=== PATIENT | female | born 1980 | race Caucasian/White ===

== ENCOUNTER 2024-01-26 11:33 | Emergency (ER) | payer BC, OTHER ==
--- OUTSIDE RECORDS SUMMARY | 2024-01-26 11:36 | XMS REPORT | Continuity of Care Document ---
Author Name Unknown Address [address] [place] [address] th[address] Address [address] [facility] 1 495 [place] [address] Care Team Providers Care Web Weaver Name Role Phone Unavailable Unavailable Unavailable Encounters Start Date/Time End Date/Time Encounter Type Admission Type Attending Clinicians Care Facility Care Department Encounter ID Source 2022-02-22 14:01:04 2022-02-22 14:01:04 Outpatient [facility] [id number] Simone Pickens
[2024-01-26] MEDS ORDERED: ACETAMINOPHEN 500 MG TAB ONE (12:05)
[2024-01-26] MEDS ORDERED: ONDANSETRON 4 MG/2 ML VIAL ONE (12:05)
[2024-01-26] MEDS ORDERED: KETOROLAC 30 MG/ML INJ ONE (12:05)
[2024-01-26] MEDS ORDERED: NA CHLORIDE 0.9% 500 ML ONE (12:05)
[2024-01-26 12:11] LABS: Absolute Basophils 0.1 K/uL (0-0.5); Absolute Lymphocytes (CBC) 1.6 K/uL (0.7-4.9); Absolute Monocytes 1.5 K/uL (0.1-1.3); Absolute Neutrophil 12.7 K/uL (1.8-8.0); Basophils % 0.8 % (0-1.3); Eosinophils % 0.2 % (0-4.4); Hematocrit 36.7 % (36.0-45.0); MCH 29.9 pg (27.0-35.0); MCHC 32.6 g/dL (32.0-36.0); MCV 91.6 fL (80-100); MPV 7.6 fL (7.6-11.3); Monocytes % 9.4 % (3.3-12.3); Neutrophils % 79.6 % (41.7-73.7); Platelets 408 thou/uL (152-406); Red Cell Distribution Width 13.8 % (12.1-15.2)
--- NOTE | 2024-01-26 13:06 | RAD REPORT ---
Procedure: Chest Single View HISTORY: Cough COMPARISON: none FINDINGS: 5.5 cm consolidation mid to lower right lung. Equivocal mild left lung opacities. No significant pleural effusion noted. The heart is normal size. IMPRESSION: Right lung consolidation likely pneumonia. This should be followed with x-ray until has cleared to ex clude a postobstructive process/underlying mass.
[2024-01-26 13:16] LABS: SARS-CoV-2 Antigen CONTROL BLUE LINE VIS/BG OK
[2024-01-26 13:17] LABS: SARS-CoV-2 Antigen Rapid Res Negative (Negative)
--- NOTE | 2024-01-26 13:28 | EDPHYS ---
Physician Documentation [facility] Name: Cheikh Bloom Age: 43 yrs Sex: Female : 1980 Arrival Date: 01/26/2024 Time: 11:33 Bed 7 Private MD: ED Physician Palomo Foss HPI: 01/25 11:59 This 43 yrs old Female presents to ER via Ambulatory with complaints of ec2 Painful Cough. 12:00 Patient arrives today for evaluation of cough and cold symptoms. Patient reports has ec2 been having a greater than 1 week of symptoms. Reports cough and congestion as well as a painful cough. Reports history of previous rib fracture and says it hurts over the same area. Denies any falls injuries or trauma. Denies any abdominal pain.. Historical: - Allergies: 11:45 No Known Allergies; db - PMHx: 11:45 None; db - PSHx: 11:45 section; db - Immunization history:: Adult Immunizations unknown. - Infectious Disease History:: Denies. - Social history:: Smoking status: Patient reports the use of cigarette tobacco products, smokes one-half pack cigarettes per day, Patient uses street drugs, marijuana. ROS: 12:00 Constitutional: as per hpi ec2 Exam: 12:00 Constitutional: GEN: NAD Head: atraumatic Eyes: EOMI Ears: External ears are ec2 normal. CV: Tachycardia LUNGS: no respiratory distress, occasional scattered wheeze noted. ABD: non-distended SKIN: no evidence of rashes MSK: no evidence of trauma Vital Signs: 11:45 BP 145 / 93; Pulse 118; Resp 18; Temp 100(O); Pulse Ox 100% on R/A; Weight 92.08 kg; db Height 5 ft. 2 in. ; 12:38 BP 125 / 90; Pulse 111; Pulse Ox 96% on R/A; MAP 101 mmHg; Pain 10/10; tm6 13:51 BP 145 / 93; Pulse 112; Resp 17; Temp 100; Pulse Ox 99% on R/A; MAP 108 mmHg; Pain 5/10;tm6 11:45 Body Mass Index 37.13 (92.08 kg, 157.48 cm) db 12:38 Pain Scale: Adult tm6 13:51 Pain Scale: Adult tm6 MDM: 11:53 Medical Screening Exam initiated ec2 12:00 Data reviewed: vital signs, nurses notes. ED course: Patient arrives today for upper ec2 respiratory symptoms. Examination remarkable for tachycardia as well as scattered wheezes noted. Will obtain lab work, chest x-ray, viral swabs.. 13:26 ED course: Patient with pneumonia noted on chest x-ray. Patient is septic with ec2 tachycardia and leukocytosis. Added on blood cultures and lactic acid and recommended admission to the hospital for continued IV antibiotics and continued fluid resuscitation. Patient declined states she did not want to be admitted to the hospital, patient is leaving AGAINST MEDICAL ADVICE and expressed understanding regarding risks and benefits of hospitalization. Will prescribe antibiotics however I strongly encouraged her to be admitted.. 12 11:54 Order name: Basic Metabolic Panel; Complete Time: 13:02 ec2 01/25 11:54 Order name: CBC with Diff; Complete Time: 13:02 ec2 01/25 11:54 Order name: Influenza Screen (a \T\ B); Complete Time: 13:19 ec2 01/25 11:54 Order name: SARS RAPID; Complete Time: 13:19 ec2 01/25 11:54 Order name: XRAY Chest (1 view); Complete Time: 13:09 ec2 01/25 11:54 Order name: IV Saline Lock; Complete Time: 12:14 ec2 01/25 11:54 Order name: Labs collected and sent; Complete Time: 12:07 ec2 01/25 11:54 Order name: O2 Per Protocol; Complete Time: 12:37 ec2 01/25 11:54 Order name: O2 Sat Monitoring; Complete Time: 12:37 ec2 Administered Medications: 12:37 Drug: Ketorolac IVP 15 mg IVP once Route: IVP; Site: right antecubital; tm6 13:50 Follow up: Response: No adverse reaction tm6 12:37 Drug: NS 0.9% IV 500 ml 500 ml IV at 1 bolus once; to be given as a bolus over 30 tm6 minutes Volume: 500 ml; Route: IV; Rate: 1 bolus; Site: right antecubital; 13:41 Follow up: IV Status: Completed infusion; IV Intake: 500ml tm6 12:37 Drug: Acetaminophen PO 1000 mg PO once Route: PO; tm6 13:50 Follow up: Response: No adverse reaction tm6 12:37 Drug: Ondansetron IVP 4 mg IVP once; over 2 minutes Route: IVP; Site: right antecubital;tm6 13:50 Follow up: Response: No adverse reaction tm6 13:29 CANCELLED (Patient Refused): rocephin1 grams IV at calculated rate once; Given slow IV ec2 push per pharmacy instructions 13:29 CANCELLED (Patient Refused): ns 0.9% 1000 ml IV at 1 bolus Per protocol; to be given as ec2 a bolus over 60 minutes 13:41 Drug: Potassium Chloride PO 40 mEq PO once Route: PO; tm6 13:50 Follow up: Response: Medication administered at discharge. tm6 Disposition Summary: 01/26/24 13:27 Discharge Ordered Notes: Location: Home ec2 Condition: Stable ec2 Diagnosis - Rib Pain ec2 - Hypokalemia ec2 - Sepsis, unspecified organism ec2 - Unspecified bacterial pneumonia ec2 Followup: ec2 - With: Private Physician - When: - Reason: Re-evaluation by your physician Discharge Instructions: - Discharge Summary Sheet ec2 - Community-Acquired Pneumonia, Adult ec2 Forms: - Medication Reconciliation Form ec2 - Antibiotic Education ec2 - Prescription Opioid Use ec2 - Patient Portal Instructions ec2 - Leadership Thank You Letter ec2 Prescriptions: - Augmentin 875-125 mg Oral Tablet - take 1 tablet ORAL route every 12 hours for 10 days; 20 tablet; Refills: 0, ec2 Product Selection Permitted Critical care time excluding procedures: 13:26 Critical care time: Bedside Care: 30 minutes, Consultation: 5 minutes. Total time: 35 ec2 minutes Signatures: Dispatcher [employer] EDBelem Chase RN RN Palomo Cabello MD MD ec2 Adrián Hill RN RN tm6 Corrections: (The following items were deleted from the chart) 11:54 11:54 Chest Single View+RAD.RAD.BRZ ordered. EDMS EDMS 12:37 11:54 Cardiac monitoring ordered. ec2 tm6 13:10 13:10 BLOOD CULTURE*+BA.LAB.BRZ ordered. EDOR EDMS 13:10 13:10 LACTATE+C.LAB.BRZ ordered. EDOR EDMS 13:29 13:10 Rocephin IV 1 grams IV at calculated rate once; Given slow IV push per pharmacy ec2 instructions ordered. ec2 13:29 13:13 NS 0.9% IV 1000 ml IV at 1 bolus Per protocol; to be given as a bolus over 60 ec2 minutes ordered. ec2 13:10 Accucheck ordered. ec2 tm6 13:10 EKG - Nurse/Tech ordered. ec2 tm6 13:10 Cardiac monitoring ordered. ec2 tm6 13:10 IV Saline Lock - Large Bore ordered. ec2 tm6 13:10 Vital Signs ordered. ec2 tm6
--- NOTE | 2024-01-26 13:28 | ER ---
Nurse's Notes [facility] Name: Cheikh Bloom Age: 43 yrs Sex: Female : 1980 Arrival Date: 01/26/2024 Time: 11:33 Bed 7 Private MD: Diagnosis: Rib Pain;Hypokalemia;Sepsis, unspecified organism;Unspecified bacterial pneumonia Presentation: 01/25 11:45 Chief complaint: Patient states: COUGH. db 11:45 Coronavirus screen: Client denies travel out of the [place] in the last 14 days. At this db time, the client does not indicate any symptoms associated with coronavirus-19. Initial Sepsis Screen: Does the patient meet any 2 criteria? No. Patient's initial sepsis screen is negative. Does the patient have a suspected source of infection? No. Patient's initial sepsis screen is negative. Risk Assessment: Do you want to hurt yourself or someone else? Patient reports no desire to harm self or others. Onset of symptoms was January 16, 2024. 11:45 Acuity: SAMANTHA 3 db 11:52 Ebola Screen: Patient negative for fever greater than or equal to 101.5 degrees db Fahrenheit, and additional compatible Ebola Virus Disease symptoms Patient denies exposure to infectious person. Patient denies travel to an Ebola-affected area in the 21 days before illness onset. No symptoms or risks identified at this time. 11:52 Method Of Arrival: Ambulatory db Triage Assessment: 11:45 General: Appears in no apparent distress. comfortable, Behavior is calm, cooperative. db Pain: Denies pain. Neuro: Level of Consciousness is awake, alert, obeys commands, Oriented to person, place, time, situation, Speech is normal. Cardiovascular: No deficits noted. Respiratory: Reports cough that is persistent Airway is patent Respiratory effort is even, unlabored, Respiratory pattern is regular, symmetrical. GI: No deficits noted. No signs and/or symptoms were reported involving the gastrointestinal system. : No deficits noted. No signs and/or symptoms were reported regarding the genitourinary system. Derm: No deficits noted. No signs and/or symptoms reported regarding the dermatologic system. Historical: - Allergies: 11:45 No Known Allergies; db - PMHx: 11:45 None; db - PSHx: 11:45 section; db - Immunization history:: Adult Immunizations unknown. - Infectious Disease History:: Denies. - Social history:: Smoking status: Patient reports the use of cigarette tobacco products, smokes one-half pack cigarettes per day, Patient uses street drugs, marijuana. Screenin:40 [facility] ED Fall Risk Assessment (Adult) History of falling in the last 3 months, tm6 including since admission No falls in past 3 months (0 pts) Confusion or Disorientation No (0 pts) Intoxicated or Sedated No (0 pts) Impaired Gait No (0 pts) Mobility Assist Device Used No (0 pt) Altered Elimination No (0 pt) Score/Fall Risk Level 0 - 2 = Low Risk Oriented to surroundings, Maintained a safe environment, Educated pt \T\ family on fall prevention, incl call for assistance when getting out of bed. Abuse screen: Denies threats or abuse. Denies injuries from another. Nutritional screening: No deficits noted. Tuberculosis screening: No symptoms or risk factors identified. Assessment: 12:38 General: Appears uncomfortable, Behavior is cooperative. Pain: Complains of pain in tm6 ribs Pain currently is 10 out of 10 on a pain scale. Pain began 2-3 days ago. Neuro: Level of Consciousness is awake, alert, obeys commands, Oriented to person, place, time, situation. Cardiovascular: Patient's skin is warm and dry. Respiratory: Reports cough that is since x2-3 days labored breathing pain with cough pain with respiration Airway is patent Respiratory effort is labored, Respiratory pattern is symmetrical. GI: No signs and/or symptoms were reported involving the gastrointestinal system. Abdomen is flat, non-distended. : No signs and/or symptoms were reported regarding the genitourinary system. EENT: No signs and/or symptoms were reported regarding the EENT system. Derm: No signs and/or symptoms reported regarding the dermatologic system. Musculoskeletal: Reports pain in ribs. 13:52 Reassessment: Patient appears in no apparent distress at this time. Patient and/or tm6 family updated on plan of care and expected duration. Pain level reassessed. Patient is alert, oriented x 3, equal unlabored respirations, skin warm/dry/pink. Vital Signs: 11:45 BP 145 / 93; Pulse 118; Resp 18; Temp 100(O); Pulse Ox 100% on R/A; Weight 92.08 kg; db Height 5 ft. 2 in. ; 12:38 BP 125 / 90; Pulse 111; Pulse Ox 96% on R/A; MAP 101 mmHg; Pain 10/10; tm6 13:51 BP 145 / 93; Pulse 112; Resp 17; Temp 100; Pulse Ox 99% on R/A; MAP 108 mmHg; Pain 5/10;tm6 11:45 Body Mass Index 37.13 (92.08 kg, 157.48 cm) db 12:38 Pain Scale: Adult tm6 13:51 Pain Scale: Adult tm6 ED Course: 11:37 Patient arrived in ED. ra3 11:45 Palomo Foss MD is Attending Physician. ec2 11:45 Arm band placed on Patient placed in an exam room. db 11:54 Adrián Hill, [place] is Primary Nurse. tm6 11:56 Triage completed. db 12:04 Inserted saline lock: 20 gauge in right antecubital area, using aseptic technique. sa1 Blood collected. Flushed with 10 mL NS. 12:07 Pillow given. sa1 12:14 Basic Metabolic Panel Sent. sa1 12:37 SARS RAPID Sent. tm6 12:37 Influenza Screen (a \T\ B) Sent. tm6 12:40 Patient has correct armband on for positive identification. Bed in low position. Call tm6 light in reach. Side rails up X 1. Provided Education on: use of call chinchilla. Client placed on continuous cardiac and pulse oximetry monitoring. NIBP monitoring applied. Pulse ox on. NIBP on. Door closed. Noise minimized. Lights dimmed. Warm blanket given. 12:53 XRAY Chest (1 view) In Process Unspecified. EDMS 13:52 No provider procedures requiring assistance completed. IV discontinued, intact, tm6 bleeding controlled, No redness/swelling at site. Pressure dressing applied. Administered Medications: 12:37 Drug: Ketorolac IVP 15 mg IVP once Route: IVP; Site: right antecubital; tm6 13:50 Follow up: Response: No adverse reaction tm6 12:37 Drug: NS 0.9% IV 500 ml 500 ml IV at 1 bolus once; to be given as a bolus over 30 tm6 minutes Volume: 500 ml; Route: IV; Rate: 1 bolus; Site: right antecubital; 13:41 Follow up: IV Status: Completed infusion; IV Intake: 500ml tm6 12:37 Drug: Acetaminophen PO 1000 mg PO once Route: PO; tm6 13:50 Follow up: Response: No adverse reaction tm6 12:37 Drug: Ondansetron IVP 4 mg IVP once; over 2 minutes Route: IVP; Site: right antecubital;tm6 13:50 Follow up: Response: No adverse reaction tm6 13:29 CANCELLED (Patient Refused): rocephin1 grams IV at calculated rate once; Given slow IV ec2 push per pharmacy instructions 13:29 CANCELLED (Patient Refused): ns 0.9% 1000 ml IV at 1 bolus Per protocol; to be given as ec2 a bolus over 60 minutes 13:41 Drug: Potassium Chloride PO 40 mEq PO once Route: PO; tm6 13:50 Follow up: Response: Medication administered at discharge. tm6 Medication: 12:38 VIS not applicable for this client. tm6 Intake: 13:41 IV: 500ml; Total: 500ml. tm6 Outcome: 13:27 Discharge ordered by . ec2 13:52 Discharged to home ambulatory, tm6 13:52 Condition: stable 13:52 Discharge instructions given to patient, Instructed on discharge instructions, follow up and referral plans. medication usage, Demonstrated understanding of instructions, follow-up care, medications, Prescriptions given X 1, 13:52 Patient left the ED. tm6 Signatures: Dispatcher [employer] Belem Rivera, RN RN db Palomo Foss MD MD ec2 Adrián Hill RN RN tm6 Mayra Graves ra3 Sultan Nader 1 Corrections: (The following items were deleted from the chart) 11:56 11:45 Chief complaint: Patient states: COUGH db db
[2024-01-26] MEDS ORDERED: POTASSIUM CL SA 10 MEQ TAB PO ONE (13:36)
[2024-01-26 14:16] VITALS: TEMP 100
[2024-01-26 14:19] VITALS: BP 145/93; O2SAT 99
== END 2024-01-26 13:52 | disposition home or self-care (01) ==
LOC: ER 11:33
DX: J15.9 Unspecified bacterial pneumonia (principal); A41.9 Sepsis, unspecified organism; E87.6 Hypokalemia; R07.81 Pleurodynia; F17.210 Nicotine dependence, cigarettes, uncomplicated; Z11.52 Encounter for screening for COVID-19
CPT/HCPCS: 96361; 85025; 80048; 36415; 87804 ×2; 71045; 96375; 96374; 99284; 87811; J2405; J7040